=== PATIENT | male | born 1960 | race Caucasian/White ===

== ENCOUNTER → 2017-01-28 | Outpatient (REF) | payer OTHER ==
[2017-01-28 19:35] LABS: URIC ACID 5.1 MG/DL (3.5-7.2)
== END ==
LOC: M LAB REF 17:08
PROVIDERS: ATTEND Nurse Practitioner Family
DX: M79.672 Pain in left foot (principal)

== ENCOUNTER → 2017-07-31 | Outpatient (CLI) | payer OTHER ==
[2017-07-31 16:10] LABS: ALBUMIN 3.9 GM/DL (3.2-5.2); PERCENT SATURATION 27.1 % (19.7-50.0)
[2017-07-31 18:00] LABS: BASO % 0.3 % (0.0-1.0); EOS # 0.2 K/mm3 (0.0-0.50); EOS % 3.6 % (0.0-3.0); LARGE UNSTAINED CELL # 0.1 K/mm3 (0.0-0.4); LARGE UNSTAINED CELL % 1.9 % (0.0-4.0); LYMPH # 0.9 K/mm3 (1.5-4.5); LYMPH % 16.6 % (24.0-44.0); MEAN CORPUSCULAR HEMOGLOBIN 32.2 pg (27.0-33.0); MEAN CORPUSCULAR HGB CONC 34.5 g/dl (32.0-36.5); MEAN CORPUSCULAR VOLUME 93.1 fl (80.0-96.0); MONO # 0.3 K/mm3 (0.0-0.8); MONO % 6.7 % (0.0-5.0); NEUTROPHILS # 3.6 K/mm3 (1.8-7.7); NEUTROPHILS % 70.9 % (36.0-66.0); PLATELET COUNT, AUTOMATED 207 k/mm3 (150-450); RED CELL DISTRIBUTION WIDTH 12.5 % (11.5-14.5); WHITE BLOOD COUNT 5.1 K/mm3 (4.0-10.0)
== END ==
LOC: M LAB 13:40
PROVIDERS: ATTEND Orthopaedic Surgery
DX: M16.12 Unilateral primary osteoarthritis, left hip (principal); M25.552 Pain in left hip; Z01.818 Encounter for other preprocedural examination; D63.8 Anemia in other chronic diseases classified elsewhere

== ENCOUNTER 2017-12-17 05:24 | Emergency (ER) | payer OTHER ==
[2017-12-17 07:35] LABS: BASO % 0.2 % (0.0-1.0); EOS % 0.1 % (0.0-3.0); HEMATOCRIT 48.6 % (42.0-52.0); HEMOGLOBIN 16.6 g/dl (14.0-18.0); IMMATURE GRANULOCYTE # 0.1 10^3/uL (0-0); IMMATURE GRANULOCYTE % 0.5 % (0-0); LYMPH % 1.5 % (24.0-44.0); MEAN CORPUSCULAR HEMOGLOBIN 30.2 pg (27.0-33.0); MEAN CORPUSCULAR HGB CONC 34.2 g/dl (32.0-36.5); MEAN CORPUSCULAR VOLUME 88.5 fl (80.0-96.0); MONO # 0.4 10^3/uL (0.0-0.8); MONO % 4.4 % (0.0-5.0); NEUTROPHILS % 93.3 % (36.0-66.0); PLATELET COUNT, AUTOMATED 174 10^3/uL (150-450); RED BLOOD COUNT 5.49 10^6/uL (4.30-6.10); RED CELL DISTRIBUTION WIDTH 12.9 % (11.5-14.5); WHITE BLOOD COUNT 9.7 10^3/uL (4.0-10.0)
[2017-12-17] MEDS: NS 1,000 ML IV ×2 (07:36→08:53)
[2017-12-17] MEDS: ONDANSETRON 4MG/2ML VIAL (J2405) IV (07:36)
[2017-12-17 07:54] LABS: ALBUMIN 4.3 GM/DL (3.2-5.2); ALBUMIN/GLOBULIN RATIO 1.05 (1.00-1.93); ALKALINE PHOSPHATASE 76 U/L (45-117); ALT/SGPT 39 U/L (12-78); ANION GAP 8 MEQ/L (8-16); AST/SGOT 38 U/L (7-37); BILIRUBIN,DIRECT 0.2 MG/DL (0.0-0.2); BILIRUBIN,TOTAL 0.9 MG/DL (0.2-1.0); BLOOD UREA NITROGEN 30 MG/DL (7-18); CALCIUM LEVEL 9.3 MG/DL (8.5-10.1); CARBON DIOXIDE LEVEL 25 MEQ/L (21-32); CHLORIDE LEVEL 106 MEQ/L (98-107); CREATININE FOR GFR 1.54 MG/DL (0.70-1.30); GLOMERULAR FILTRATION RATE 49.5 (>56); GLUCOSE, FASTING 137 MG/DL (70-100); POTASSIUM SERUM 4.6 MEQ/L (3.5-5.1); SODIUM LEVEL 139 MEQ/L (136-145); TOTAL PROTEIN 8.4 GM/DL (6.4-8.2)
[2017-12-17 08:08] LABS: ADD MANUAL DIFFER NO; DIFF SLIDE NUMBER 122; LYMPH # 0.2 10^3/uL (1.5-4.5); POSITIVE DIFF POS FLAG
== END 2017-12-17 10:08 | disposition home or self-care (01) ==
LOC: M ED 05:24
DX: A08.4 Viral intestinal infection, unspecified (principal); I10 Essential (primary) hypertension; Z79.899 Other long term (current) drug therapy
CPT/HCPCS: J2405

== ENCOUNTER 2017-12-25 00:32 | Observation (INO) | payer OTHER ==
[2017-12-25] MEDS: CEFTRIAXONE SOD 1 GM in APPROPRIATE DILUENT 1 EA IV (02:39)
[2017-12-25] MEDS: KETOROLAC 30 MG/ML VIAL (J1885) IV ×2 (02:40)
[2017-12-25] MEDS: NS 1,000 ML IV ×2 (02:45)
[2017-12-25 02:52] LABS: ANION GAP 9 MEQ/L (8-16); BLOOD UREA NITROGEN 23 MG/DL (7-18); CALCIUM LEVEL 8.7 MG/DL (8.5-10.1); CARBON DIOXIDE LEVEL 27 MEQ/L (21-32); CHLORIDE LEVEL 99 MEQ/L (98-107); CREATININE FOR GFR 1.18 MG/DL (0.70-1.30); GLOMERULAR FILTRATION RATE > 60.0 (>56); GLUCOSE, FASTING 130 MG/DL (70-100); POTASSIUM SERUM 4.2 MEQ/L (3.5-5.1); SODIUM LEVEL 135 MEQ/L (136-145)
[2017-12-25 02:55] LABS: LACTIC ACID SEPSIS PROTOCOL 1.6 MMOL/L (0.4-2.0)
[2017-12-25 03:04] LABS: INFLUENZA A AMPLIFICATION NEGATIVE (NEGATIVE); INFLUENZA B AMPLIFICATION NEGATIVE (NEGATIVE)
[2017-12-25] MEDS ORDERED: ISOVUE-370 76% 100ML VIAL (Q9967) As Ordered ×2 (03:14)
[2017-12-25 03:15] LABS: BASO % 0.3 % (0.0-1.0); EOS # 0.1 10^3/uL (0.0-0.50); HEMATOCRIT 43.6 % (42.0-52.0); HEMOGLOBIN 14.8 g/dl (14.0-18.0); IMMATURE GRANULOCYTE % 1.3 % (0-3.0); LYMPH # 0.8 10^3/uL (1.5-4.5); LYMPH % 8.1 % (24.0-44.0); MEAN CORPUSCULAR HEMOGLOBIN 30.3 pg (27.0-33.0); MEAN CORPUSCULAR HGB CONC 33.9 g/dl (32.0-36.5); MEAN CORPUSCULAR VOLUME 89.3 fl (80.0-96.0); MONO # 0.9 10^3/uL (0.0-0.8); MONO % 9.1 % (0.0-5.0); NEUTROPHILS # 7.7 10^3/uL (1.8-7.7); NEUTROPHILS % 80.2 % (36.0-66.0); PLATELET COUNT, AUTOMATED 232 10^3/uL (150-450); RED BLOOD COUNT 4.88 10^6/uL (4.30-6.10); RED CELL DISTRIBUTION WIDTH 12.8 % (11.5-14.5); WHITE BLOOD COUNT 9.6 10^3/uL (4.0-10.0)
[2017-12-25] MEDS: AZITHROMYCIN INJ 500 MG, VIAL MATE ADAPTER 1 EACH in D5W 250 ML IV ×2 (03:25)
[2017-12-25] MEDS: APIXABAN 5 MG TAB (ELIQUIS) PO ×4 (04:18→20:20)
[2017-12-25 05:11] LABS: CPK CREATINE PHOSPHOKINASE 465 U/L (39-308); TROPONIN I < 0.02 NG/ML (< 0.10)
[2017-12-25 08:11] LABS: INR 1.26
[2017-12-25 08:12] LABS: PARTIAL THROMBOPLASTIN TIME 34.6 SECONDS (26.8-37.9)
[2017-12-25 08:16] LABS: C REACTIVE PROTEIN QUANTITATIV 4.43 MG/DL (0.00-0.30)
[2017-12-25 08:25] LABS: ERYTHROCYTE SEDIMENTATION RATE 26 mm/hr (0-20)
[2017-12-25] MEDS: LOSARTAN 50 MG TAB PO ×2 (09:54)
[2017-12-25] MEDS: ESCITALOPRAM OXALATE 10 MG TAB (LEXAPRO) PO ×2 (09:54)
[2017-12-25 11:07] LABS: CPK CREATINE PHOSPHOKINASE 341 U/L (39-308); TROPONIN I < 0.02 NG/ML (< 0.10)
[2017-12-25 11:08] LABS: CK-MB VALUE MASS 5.3 NG/ML (0.0-3.6); MB/CK RELATIVE INDEX 1.55 (< OR =4)
[2017-12-25 17:21] LABS: CK-MB VALUE MASS 5.2 NG/ML (0.0-3.6); CPK CREATINE PHOSPHOKINASE 346 U/L (39-308); TROPONIN I < 0.02 NG/ML (< 0.10)
[2017-12-25] MEDS: NORCO, ANEXSIA 5/325MG TABLET (HYDROcodone/ACETAMINOPHEN) PO ×2 (17:28)
[2017-12-26] MEDS: ACETAMINOPHEN TAB 650MG DOSE (2X325MG) PO ×2 (03:48)
[2017-12-26 05:39] LABS: BASO % 0.4 % (0.0-1.0); EOS # 0.2 10^3/uL (0.0-0.50); EOS % 2.3 % (0.0-3.0); HEMATOCRIT 37.6 % (42.0-52.0); IMMATURE GRANULOCYTE % 0.8 % (0-3.0); LYMPH % 12.1 % (24.0-44.0); MEAN CORPUSCULAR HEMOGLOBIN 30.4 pg (27.0-33.0); MEAN CORPUSCULAR HGB CONC 34.6 g/dl (32.0-36.5); MEAN CORPUSCULAR VOLUME 88.1 fl (80.0-96.0); MONO % 12.9 % (0.0-5.0); NEUTROPHILS # 5.7 10^3/uL (1.8-7.7); NEUTROPHILS % 71.5 % (36.0-66.0); PLATELET COUNT, AUTOMATED 197 10^3/uL (150-450); RED BLOOD COUNT 4.27 10^6/uL (4.30-6.10); RED CELL DISTRIBUTION WIDTH 12.8 % (11.5-14.5)
[2017-12-26 05:57] LABS: ALBUMIN 2.8 GM/DL (3.2-5.2); ALBUMIN/GLOBULIN RATIO 0.76 (1.00-1.93); ALKALINE PHOSPHATASE 55 U/L (45-117); ALT/SGPT 28 U/L (12-78); ANION GAP 6 MEQ/L (8-16); AST/SGOT 21 U/L (7-37); BILIRUBIN,TOTAL 0.6 MG/DL (0.2-1.0); BLOOD UREA NITROGEN 15 MG/DL (7-18); CALCIUM LEVEL 8.4 MG/DL (8.5-10.1); CARBON DIOXIDE LEVEL 26 MEQ/L (21-32); CHLORIDE LEVEL 103 MEQ/L (98-107); CREATININE FOR GFR 0.91 MG/DL (0.70-1.30); GLOMERULAR FILTRATION RATE > 60.0 (>56); GLUCOSE, FASTING 107 MG/DL (70-100); MAGNESIUM LEVEL 2.1 MG/DL (1.8-2.4); SODIUM LEVEL 135 MEQ/L (136-145); TOTAL PROTEIN 6.5 GM/DL (6.4-8.2)
[2017-12-26] MEDS: ESCITALOPRAM OXALATE 10 MG TAB (LEXAPRO) PO ×2 (09:00)
[2017-12-26] MEDS: LOSARTAN 50 MG TAB PO ×2 (09:00)
[2017-12-26] MEDS: APIXABAN 5 MG TAB (ELIQUIS) PO ×2 (09:01)
[2017-12-26] MEDS: NORCO, ANEXSIA 5/325MG TABLET (HYDROcodone/ACETAMINOPHEN) PO ×2 (12:35)
[2017-12-31 14:11] LABS: ANCA-ATYPICAL <1:20 titer (Neg:<1:20); ANTI THROMBIN 3 ANTIGEN IMMUNO 80 % (72-124); ANTI THROMBIN 3 FUNCT ACTIVITY 124 % (75-135); ANTINUCLEAR ANTIBODIES DIRECT Negative (Negative); CARDIOLIPIN IGA ANTIBODY <9 APL U/mL (0-11); CARDIOLIPIN IGG ANTIBODY <9 GPL U/mL (0-14); CARDIOLIPIN IGM ANTIBODY <9 MPL U/mL (0-12); CYTOPLASMIC NEUTROP AB ANCA-C <1:20 titer (Neg:<1:20); HOMOCYST(E)INE SERUM 14.6 umol/L (0.0-15.0); PERINUCLEAR AB ANCA-P <1:20 titer (Neg:<1:20); PROTEIN C ANTIGEN 58 % (60-150); PROTEIN S ANTIGEN FREE 168 % (57-157); PROTEIN S ANTIGEN TOTAL 56 % (60-150); SJOGREN'S ANTI SS-A <0.2 AI (0.0-0.9); SJOGREN'S ANTI SS-B <0.2 AI (0.0-0.9)
[2018-01-02 10:20] LABS: DRVV SCREEN 85.2 SEC
[2018-01-02 10:32] LABS: DRVV CONFIRM 67.5 SEC; LUPUS CONFIRM RATIO 1.8
[2018-01-02 10:34] LABS: NORMALIZED RATIO 1.11 (0.00-1.20)
== END 2017-12-26 15:16 | disposition home or self-care (01) ==
LOC: M ED 00:32 → M ED INP 04:32 → M PCU 17:05
DX: I26.99 Other pulmonary embolism without acute cor pulmonale (principal); I10 Essential (primary) hypertension; F32.9 Major depressive disorder, single episode, unspecified; Z87.19 Personal history of other diseases of the digestive system; Z79.899 Other long term (current) drug therapy; Z79.01 Long term (current) use of anticoagulants; Z98.84 Bariatric surgery status
CPT/HCPCS: J0456

== ENCOUNTER → 2018-01-31 | Outpatient (CLI) | payer OTHER | LOC: M RAD 14:54 | DX: R22.41 Localized swelling, mass and lump, right lower limb (principal); Z86.711 Personal history of pulmonary embolism | CPT/HCPCS: 93971 ==

== ENCOUNTER → 2018-02-06 | Outpatient (REF) | payer OTHER ==
[2018-02-06 14:06] LABS: C REACTIVE PROTEIN QUANTITATIV < 0.30 MG/DL (0.00-0.30)
== END ==
LOC: M LAB REF 13:36
DX: R79.82 Elevated C-reactive protein (CRP) (principal)

== ENCOUNTER → 2018-03-13 | Outpatient (REF) | payer OTHER ==
[2018-03-13 18:35] LABS: TESTOSTERONE 222 NG/DL (241-827)
== END ==
LOC: M LAB REF 16:45
DX: R68.82 Decreased libido (principal); R53.83 Other fatigue

== ENCOUNTER 2018-06-10 08:01 | Day surgery (SDC) | payer OTHER ==
[2018-06-10] MEDS ORDERED: NS 1,000 ML IV (08:15)
[2018-06-10] MEDS ORDERED: LIDOCAINE 2% INJ 100 MG/5 ML SDV (FOR ANES.) As Ordered (09:21)
[2018-06-10] MEDS ORDERED: PROPOFOL 200 MG/20 ML VIAL As Ordered ×2 (09:22)
== END 2018-06-10 10:28 | disposition home or self-care (01) ==
LOC: M OPP 08:01
DX: Z12.11 Encounter for screening for malignant neoplasm of colon (principal); D12.0 Benign neoplasm of cecum; D12.3 Benign neoplasm of transverse colon; D12.5 Benign neoplasm of sigmoid colon; K62.1 Rectal polyp; K57.30 Diverticulosis of large intestine without perforation or abscess without bleeding; K64.8 Other hemorrhoids; I10 Essential (primary) hypertension; K21.9 Gastro-esophageal reflux disease without esophagitis; R12 Heartburn; Z86.711 Personal history of pulmonary embolism; R06.83 Snoring; Z96.643 Presence of artificial hip joint, bilateral; Z79.01 Long term (current) use of anticoagulants; Z79.899 Other long term (current) drug therapy; Z80.0 Family history of malignant neoplasm of digestive organs
CPT/HCPCS: 45380

== ENCOUNTER → 2018-08-08 | Outpatient (REF) | payer OTHER ==
[2018-08-08 14:03] LABS: TESTOSTERONE 321 NG/DL (241-827)
== END ==
LOC: M LAB REF 13:10
DX: E29.1 Testicular hypofunction (principal); R68.82 Decreased libido; Z79.899 Other long term (current) drug therapy

== ENCOUNTER → 2018-08-15 | Outpatient (REF) | payer OTHER ==
[2018-08-15 14:54] LABS: TESTOSTERONE 212 NG/DL (241-827)
== END ==
LOC: M LAB REF 13:15
DX: E29.1 Testicular hypofunction (principal)

== ENCOUNTER → 2018-09-19 | Outpatient (REF) | payer OTHER ==
[2018-09-19 14:11] LABS: TESTOSTERONE 584 NG/DL (241-827)
== END ==
LOC: M LAB REF 12:08
DX: E29.1 Testicular hypofunction (principal)

== ENCOUNTER → 2019-01-26 | Outpatient (REF) | payer OTHER ==
[~2019-01-26] MED LIST: ELIQ5TAB PO; ESCI10TA2 PO; ESCI20TA PO; LOSA50TA88 PO; OXYC-517 PO; TEST200I14 IM; ZOFR4TAB14 PO
[2019-01-26 17:19] LABS: C REACTIVE PROTEIN QUANTITATIV 0.7 MG/DL (0.00-0.30); URIC ACID 6.2 MG/DL (3.5-7.2)
== END ==
LOC: M LAB REF 16:28
PROVIDERS: ATTEND Nurse Practitioner Family
DX: M79.674 Pain in right toe(s) (principal)

== ENCOUNTER → 2019-02-17 | Outpatient (CLI) | payer OTHER ==
--- NOTE | 2019-02-17 09:22 | REP ---
Right lower extremity arterial Doppler ultrasound: Brachial artery flow velocity 150 cm/sec. Dorsalis pedis flow velocity 148 cm/sec. Posterior tibialis artery flow velocity 120 cm/sec. SHAY: 1.1 Peak Systolic Phasicity Velocity GOLF TEACHER 44.6 triphasic Profunda 108.2 triphasic SFA prox 91.7 triphasic SFA mid 112 triphasic SFA dist 109.1 triphasic Pop 67.9 triphasic GASPER prox 65.4 triphasic Tib/P tr 55 triphasic INTERNATIONAL ORGANIZER pr 67.1 triphasic INTERNATIONAL ORGANIZER dst 70.4 triphasic GASPER dst 46.4 triphasic Left lower extremity arterial Doppler ultrasound: Brachial artery flow velocity 150 cm/sec. Dorsalis penis flow velocity 100 cm/sec. Posterior tibialis artery flow velocity 155 cm/sec. SHAY: 1.0 Peak Systolic Phasicity Velocity GOLF TEACHER 88.8 triphasic Profunda 68.0 triphasic SFA prox 88.7 triphasic SFA mid 105.7 triphasic SFA dist 103.4 triphasic Pop 74.0 triphasic GASPER prox 55.5 triphasic Tib/P tr 64.9 triphasic INTERNATIONAL ORGANIZER pr 54 points triphasic INTERNATIONAL ORGANIZER dst 44.4 upper triphasic GASPER dst 70.1 triphasic Impression: The peak flow velocities are normal bilaterally. There is no identifiable atheromatous plaque. There is no evidence of stenosis by Doppler ultrasound on the right or the left. Electronically Signed by Onesimo Sanchez MD 02/17/2019 09:14 A
== END ==
LOC: M RAD 07:05
PROVIDERS: ATTEND Podiatrist Foot & Ankle Surgery
DX: I73.9 Peripheral vascular disease, unspecified (principal); R22.43 Localized swelling, mass and lump, lower limb, bilateral

== ENCOUNTER → 2019-06-25 | Outpatient (REF) | payer OTHER ==
[2019-06-25 20:20] LABS: CHLAMYDIA DNA AMPLIFICATION NEGATIVE (NEGATIVE); GC DNA AMPLIFICATION NEGATIVE (NEGATIVE)
[2019-06-26 11:42] LABS: HEPATITIS A ANTIBODY IGM NEGATIVE (NEGATIVE); HEPATITIS B CORE ANTIBODY IGM NEGATIVE (NEGATIVE); HEPATITIS B SURFACE ANTIGEN NEGATIVE (NEGATIVE); HEPATITIS C VIRUS ABY INDEX 0.2 INDEX (<0.8); HIV 1&2 SCREEN CENTAUR NEGATIVE (NEGATIVE)
== END ==
LOC: M LAB REF 16:18
PROVIDERS: ATTEND Nurse Practitioner Family
DX: Z20.2 Contact with and (suspected) exposure to infections with a predominantly sexual mode of transmission (principal)

== ENCOUNTER → 2019-07-14 | Outpatient (REF) | payer OTHER | LOC: M LAB REF 13:59 | PROVIDERS: ATTEND Nurse Practitioner Family | DX: R30.0 Dysuria (principal) ==

== ENCOUNTER → 2019-07-17 | Outpatient (REF) | payer OTHER | LOC: M LAB REF 14:51 | PROVIDERS: ATTEND Nurse Practitioner Family | DX: R19.7 Diarrhea, unspecified (principal) ==

== ENCOUNTER → 2019-08-31 | Outpatient (REF) | payer OTHER ==
[2019-09-02 00:06] LABS: TESTOSTERONE FREE (DIRECT) 7.6 pg/mL (6.6-18.1)
== END ==
LOC: M LAB REF 12:13
PROVIDERS: ATTEND Internal Medicine
DX: E29.1 Testicular hypofunction (principal); R53.83 Other fatigue; M54.5 Low back pain

== ENCOUNTER → 2019-12-25 | Outpatient (REF) | payer OTHER ==
[2019-12-25 13:39] LABS: HIV 1&2 SCREEN CENTAUR NEGATIVE (NEGATIVE); TESTOSTERONE 240 NG/DL (241-827)
== END ==
LOC: M LAB REF 12:26
PROVIDERS: ATTEND Internal Medicine
DX: Z11.4 Encounter for screening for human immunodeficiency virus [HIV] (principal); E29.1 Testicular hypofunction

== ENCOUNTER 2020-01-18 17:53 | Emergency (ER) | payer OTHER ==
[~2020-01-18] VITALS: Ht 185.4 cm; Wt 120.2 kg
[2020-01-18 17:53] VITALS: BP 137/79
[2020-01-18 19:58] LABS: BASO % 0.4 % (0.0-1.0); EOS # 0.2 10^3/uL (0.0-0.5); EOS % 3.1 % (0.0-3.0); HEMATOCRIT 49.1 % (42.0-52.0); HEMOGLOBIN 16.6 g/dl (13.5-17.5); LYMPH # 1.5 10^3/uL (1.5-5.0); LYMPH % 22.2 % (24.0-44.0); MEAN CORPUSCULAR HEMOGLOBIN 31.3 pg (27.0-33.0); MEAN CORPUSCULAR HGB CONC 33.8 g/dl (32.0-36.5); MEAN CORPUSCULAR VOLUME 92.6 fl (80.0-96.0); MONO # 0.6 10^3/uL (0.0-0.8); NEUTROPHILS # 4.4 10^3/uL (1.5-8.5); NEUTROPHILS % 64.9 % (36.0-66.0); PLATELET COUNT, AUTOMATED 198 10^3/uL (150-450); WHITE BLOOD COUNT 6.8 10^3/uL (4.0-10.0)
[2020-01-18] MEDS ORDERED: ISOVUE-370 76% 100ML VIAL (Q9967) As Ordered ONE (20:07)
[2020-01-18 20:10] LABS: INR 1.15; PARTIAL THROMBOPLASTIN TIME 26.7 SECONDS (25.0-38.4); PROTHROMBIN TIME 14.4 SECONDS (11.8-14.0)
--- NOTE | 2020-01-18 21:16 | REPVR ---
PROCEDURE INFORMATION: Exam: CTA Right Lower Extremity With Contrast Exam date and time: 01/18/2020 8:14 PM Age: 59 years old Clinical indication: Other: Black toes; Additional info: Black toes, poor capillary refill bilateral, wound R 3rd toe TECHNIQUE: Imaging protocol: CTA images of the Right lower extremity with intravenous contrast using CT angiography protocol. 3D rendering: MIP and/or 3D reconstructed images were created by the technologist. Radiation optimization: All CT scans at this facility use at least one of these dose optimization techniques: automated exposure control; mA and/or kV adjustment per patient size (includes targeted exams where dose is matched to clinical indication); or iterative reconstruction. Contrast material: ISOVUE 370; Contrast volume: 100 ml; Contrast route: IV; COMPARISON: No relevant prior studies available. FINDINGS: Right femoral/popliteal arteries: No occlusion or significant stenosis. No aneurysm or dissection Right infrapopliteal arteries: The trifurcation is patent. There is flow in the proximal portions of the anterior and posterior tibial arteries and peroneal artery to the level of the mid calf. No contrast is seen below this level, though this appears to be an artifact related to suboptimal contrast bolus timing. Flow in the left foreleg is also not visualized below the mid calf. Other arteries: Common, internal, and external iliac arteries are patent without significant stenosis. Bones/joints: No acute fracture. No dislocation. Bilateral hip arthroplasties. Soft tissues: Unremarkable. IMPRESSION: 1. No large vessel occlusion or flow-limiting stenosis. 2. No significant arterial contrast opacification below the mid foreleg which is likely an artifact related to suboptimal contrast bolus timing. Vasculature below the mid foreleg cannot be evaluated. Electronically signed by: Manuel Pearson On 01/18/2020 21:16:23 PM
== END 2020-01-18 21:54 | disposition home or self-care (01) ==
LOC: M ED 17:53
DX: S91.109A Unspecified open wound of unspecified toe(s) without damage to nail, initial encounter (principal); X58.XXXA Exposure to other specified factors, initial encounter; Y92.89 Other specified places as the place of occurrence of the external cause; I73.9 Peripheral vascular disease, unspecified; I10 Essential (primary) hypertension; K21.9 Gastro-esophageal reflux disease without esophagitis; Z79.899 Other long term (current) drug therapy; Z79.01 Long term (current) use of anticoagulants
CPT/HCPCS: 36415; 73706; 80047; 85025; 85610; 85730; 99283; Q9967

== ENCOUNTER → 2020-03-18 | Outpatient (CLI) | payer OTHER ==
--- NOTE | 2020-03-18 12:50 | REP ---
Bilateral lower extremity arterial Doppler ultrasound: History: Pain in the leg. Symptoms and signs involving the circulatory system. Findings: Ankle brachial indices are normal measured at 1.0 on the right and 1.2 on the left. Normal triphasic waveforms are noted throughout the lower extremities bilaterally. Minimal plaquing is seen with calcification noted in the arteries about the ankles. No stenosis or occlusion is appreciated on either side. Right lower extremity arterial Doppler velocity chart: Right CF A PSV 111 cm/S Profunda 62 Proximal SFA 83 Mid SFA 89 Distal SFA 74 Popliteal 48 Proximal AT A 54 Tibioperoneal trunk 33 Proximal COMPLIANCE REVIEW OFFICER 56 Distal COMPLIANCE REVIEW OFFICER 42 Distal AT A 41 Left lower extremity arterial Doppler velocity chart: Left CF A PSV 108 cm/S Profunda 78 Proximal SFA 73 Mid SFA 97 Distal SFA 85 Popliteal 66 Proximal AT A 49 Tibioperoneal trunk 55 Proximal COMPLIANCE REVIEW OFFICER 43 Distal COMPLIANCE REVIEW OFFICER 48 Distal AT A 46 Electronically Signed by Nader Stout MD 03/18/2020 12:41 P
== END ==
LOC: M RAD 10:48
PROVIDERS: ATTEND Physician Assistant
DX: M79.606 Pain in leg, unspecified (principal); R09.89 Other specified symptoms and signs involving the circulatory and respiratory systems

== ENCOUNTER → 2020-06-21 | Outpatient (CLI) | payer OTHER ==
--- NOTE | 2020-08-05 10:50 | REP ---
BILATERAL LOWER EXTREMITY DUPLEX DOPPLER VENOUS ULTRASOUND WITH EVALUATION FOR VENOUS REFLUX: TECHNIQUE: Real time compression and duplex Doppler interrogation of bilateral lower extremity deep venous systems is performed bilaterally. FINDINGS: The common femoral, superficial femoral and popliteal veins are fully compressible with transducer pressure and demonstrate normal spontaneous and phasic flow without evidence of deep venous thrombosis. Evaluation for venous reflux on the right demonstrates no reflux in any portion of the deep vein system. There is no evidence of an anterior accessory greater saphenous vein. There is mild reflux in the mid-greater saphenous vein with a duration of 2.7 seconds, AP diameter of 3 mm with no other events of greater saphenous vein reflux. At the saphenofemoral junction, the vein measures 4 mm and at the knee, 3 mm. The lesser saphenous vein measures 5 mm without reflux. On the left, there is some mild reflux in the common femoral vein. There is no evidence of an anterior greater saphenous vein. There is minimal reflux in the greater saphenous vein at the saphenofemoral junction with duration of 0.7 seconds, AP diameter of 4 mm. No reflux is seen in the remaining greater saphenous vein which measures 4 mm at the mid-thigh and 3 mm at the knee. The is no reflux in the lesser saphenous vein which measures 5 mm. MTDD
== END ==
LOC: M RAD 12:00
PROVIDERS: ATTEND Physician Assistant
DX: I87.2 Venous insufficiency (chronic) (peripheral) (principal)

== ENCOUNTER → 2020-07-01 | Outpatient (REF) | payer OTHER ==
[2020-07-04 13:06] LABS: TESTOSTERONE FREE (DIRECT) 17.6 pg/mL (6.6-18.1)
== END ==
LOC: M LAB REF 17:13
PROVIDERS: ATTEND Internal Medicine
DX: E29.1 Testicular hypofunction (principal)

== ENCOUNTER → 2020-09-01 | Outpatient (REF) | payer OTHER | LOC: M LAB REF 11:31 | PROVIDERS: ATTEND Nurse Practitioner Adult Health | DX: R30.0 Dysuria (principal); R31.29 Other microscopic hematuria ==

== ENCOUNTER → 2020-09-15 | Outpatient (REF) | payer OTHER ==
[2020-09-15 14:10] LABS: APPEARANCE, URINE CLEAR (CLEAR); BACTERIA, URINE AUTO NEGATIVE (NEGATIVE); BILIRUBIN, URINE AUTO NEGATIVE (NEGATIVE); BLOOD, URINE BLOOD NEGATIVE (NEGATIVE); COLOR, URINE YELLOW (YELLOW); GLUCOSE, URINE (UA) AUTO NEGATIVE (NEGATIVE); KETONE, URINE AUTO NEGATIVE (NEGATIVE); LEUKOCYTE ESTERASE, URINE AUTO NEGATIVE (NEGATIVE); MUCUS, URINE SMALL (NEGATIVE); NITRITE, URINE AUTO NEGATIVE (NEGATIVE); PROTEIN, URINE AUTO NEGATIVE (NEGATIVE); RBC, URINE AUTO 1 /HPF (0-3); SPECIFIC GRAVITY URINE AUTO 1.018 (1.002-1.035); SQUAMOUS EPITHELIAL CELL UR AU 0 /HPF (0-6); UROBILINOGEN, URINE AUTO 0.2 mg/dL (0.0-2.0); WBC, URINE AUTO 1 /HPF (0-3)
== END ==
LOC: M SMT 13:05
PROVIDERS: ATTEND Nurse Practitioner Women's Health
DX: R31.29 Other microscopic hematuria (principal)

== ENCOUNTER → 2020-09-23 | Outpatient (CLI) | payer OTHER ==
[~2020-09-23] MED LIST changes: +ISOVUE-370 76% 100ML VIAL As Ordered ONE
--- NOTE | 2020-09-23 10:00 | REP ---
INDICATION: GROIN PAIN, MICROSCOPIC HEMATURIA. CT urography. COMPARISON: None. TECHNIQUE: Contrast dose: 100 ML of Isovue [address] technique: Helical scanning is acquired and overlapping 1.5 mm and contiguous 3 mm axial images are reformatted. In addition, maximum intensity projection and multiplanar re-formation images are generated in sagittal and coronal imaging projections. 3D surface rendered imaging is acquired on delayed acquisition. FINDINGS: Preliminary digital marine painter radiograph demonstrates bilateral hip arthroplasties and a normal bowel gas pattern. The lung bases are clear. Axial images demonstrate surgical clips and sutures at the gastroesophageal junction. There is minimal diffuse fatty infiltration of the liver. No focal liver lesion is seen. The spleen is normal in size homogeneous in texture. No abnormality is noted in the gallbladder or the pancreas. Normal adrenal glands are observed bilaterally. There is no evidence of hydronephrosis on either side. Noncontrast study shows no evidence of intrarenal calculus. The kidneys enhance symmetrically post-contrast. No renal mass lesion is observed. Delayed scan images show no filling defect in the collecting system on either side. The ureters describe a normal course to the urinary bladder. Lyman artifact it interferes with pelvis images somewhat. There are few calcifications in the prostate gland. No filling defect is apparent in the urinary bladder. There is left colonic diverticulosis without CT evidence of diverticulitis. No abdominal wall defect is seen. No bony destructive lesion is appreciated. Surface rendered 3D images show no additional abnormality. IMPRESSION: No evidence urinary tract calculus or mass lesion. Left colonic diverticulosis without CT evidence of diverticulitis. Some dystrophic calcifications in the prostate. <Electronically signed by Fred Stout > 09/23/20 [id number]
== END ==
LOC: M RAD 08:12
PROVIDERS: ATTEND Nurse Practitioner Women's Health
DX: R10.30 Lower abdominal pain, unspecified (principal); R31.29 Other microscopic hematuria; K57.30 Diverticulosis of large intestine without perforation or abscess without bleeding
CPT/HCPCS: 74178; Q9967

== ENCOUNTER → 2021-01-06 | Outpatient (REF) | payer OTHER ==
[~2021-01-06] MED LIST changes: +ESCI10TA16 PO; -ESCI10TA2 PO; -ESCI20TA PO; +ESCI20TA16 PO; -ISOVUE-370 76% 100ML VIAL As Ordered ONE
[2021-01-09 19:06] LABS: TESTOSTERONE FREE (DIRECT) 4.2 pg/mL (6.6-18.1)
== END ==
LOC: M LAB REF 16:33
PROVIDERS: ATTEND Internal Medicine
DX: E29.1 Testicular hypofunction (principal)

== ENCOUNTER → 2021-07-10 | Outpatient (REF) | payer OTHER ==
[2021-07-13 20:07] LABS: TESTOSTERONE FREE (DIRECT) 7.6 pg/mL (6.6-18.1)
== END ==
LOC: M LAB REF 10:10
PROVIDERS: ATTEND Internal Medicine
DX: E29.1 Testicular hypofunction (principal)

== ENCOUNTER → 2022-02-08 | Outpatient (REF) | payer OTHER ==
[~2022-02-08] MED LIST changes: +LOSA50TA28 PO; -LOSA50TA88 PO
[2022-02-09 21:07] LABS: TESTOSTERONE FREE (DIRECT) 19.9 pg/mL (6.6-18.1)
== END ==
LOC: M LAB REF 12:21
PROVIDERS: ATTEND Internal Medicine
DX: E29.1 Testicular hypofunction (principal)

== ENCOUNTER → 2022-03-12 | Outpatient (REF) | payer OTHER | LOC: M LAB REF 16:19 | PROVIDERS: ATTEND Internal Medicine | DX: E29.1 Testicular hypofunction (principal) ==

== ENCOUNTER 2022-06-20 00:07 | Emergency (ER) | payer OTHER ==
[~2022-06-20] VITALS: Ht 188 cm; Wt 116.0 kg
[2022-06-20 01:10] LABS: BASO # 0.1 10^3/uL (0.0-0.2); BASO % 0.8 % (0.0-1.0); EOS # 0.2 10^3/uL (0.0-0.5); EOS % 3.7 % (0.0-3.0); HEMATOCRIT 50.3 % (42.0-52.0); HEMOGLOBIN 17.1 g/dl (13.5-17.5); LYMPH # 1.2 10^3/uL (1.5-5.0); LYMPH % 19.5 % (24.0-44.0); MEAN CORPUSCULAR HEMOGLOBIN 31.5 pg (27.0-33.0); MEAN CORPUSCULAR VOLUME 92.8 fl (80.0-96.0); MONO # 0.7 10^3/uL (0.0-0.8); MONO % 10.7 % (2.0-8.0); NEUTROPHILS % 64.6 % (36.0-66.0); PLATELET COUNT, AUTOMATED 172 10^3/uL (150-450); RED BLOOD COUNT 5.42 10^6/uL (4.30-6.10); WHITE BLOOD COUNT 6.2 10^3/uL (4.0-10.0)
[2022-06-20 02:42] LABS: CK-MB VALUE MASS 15.8 NG/ML (<3.6); MB/CK RELATIVE INDEX 2.49 (< OR =4)
[2022-06-20 02:43] LABS: BLOOD UREA NITROGEN 15 MG/DL (7-18); CALCIUM LEVEL 8.6 MG/DL (8.8-10.2); CARBON DIOXIDE LEVEL 26 MEQ/L (21-32); CHLORIDE LEVEL 105 MEQ/L (98-107); CREATININE FOR GFR 1.01 MG/DL (0.70-1.30); GLOMERULAR FILTRATION RATE > 60.0 (>49); GLUCOSE, FASTING 96 MG/DL (70-100); NT-PRO BNP 54 PG/ML (<125); POTASSIUM SERUM 4.3 MEQ/L (3.5-5.1); SODIUM LEVEL 137 MEQ/L (136-145)
[2022-06-20] MEDS ORDERED: ISOVUE-370 76% 100ML VIAL As Ordered ONE (02:55)
[2022-06-20] MEDS ORDERED: NS 1,000 ML IV ONE (03:40)
[2022-06-20 03:45] VITALS: BP 140/75
== END 2022-06-20 04:06 | disposition home or self-care (01) ==
LOC: M ED 00:07
DX: R07.89 Other chest pain (principal); E04.1 Nontoxic single thyroid nodule; I10 Essential (primary) hypertension; Z86.711 Personal history of pulmonary embolism; Z79.899 Other long term (current) drug therapy; Z79.890 Hormone replacement therapy; Z79.01 Long term (current) use of anticoagulants
CPT/HCPCS: 36415; 71045; 71275; 74177; 80048; 82550; 82553; 83735; 83880; 84484; 85025; 93005; 99284; Q9967

== ENCOUNTER → 2022-07-10 | Outpatient (CLI) | payer OTHER | LOC: M RAD 11:59 | PROVIDERS: ATTEND Internal Medicine | DX: E04.1 Nontoxic single thyroid nodule (principal) ==

== ENCOUNTER → 2022-07-13 | Outpatient (REF) | payer OTHER | LOC: M LAB REF 16:19 | PROVIDERS: ATTEND Internal Medicine | DX: E29.1 Testicular hypofunction (principal) ==

== ENCOUNTER → 2023-06-25 | Outpatient (REF) | payer OTHER | LOC: M LAB REF 11:44 | PROVIDERS: ATTEND Physician Assistant Medical | DX: R19.7 Diarrhea, unspecified (principal) ==

== ENCOUNTER → 2023-06-28 | Outpatient (REF) | payer OTHER | LOC: M LAB REF 16:00 | PROVIDERS: ATTEND Physician Assistant Medical | DX: R19.7 Diarrhea, unspecified (principal) ==

== ENCOUNTER → 2023-07-26 | Outpatient (REF) | payer OTHER ==
[2023-07-29 09:47] LABS: DRVV SCREEN 54.5 SECONDS
[2023-07-29 10:13] LABS: PTT LUPUS TYPE ANTICOAG SCREEN 1.36 (0-1.20)
[2023-07-29 10:21] LABS: DRVV CONFIRM 46.7 SECONDS; LUPUS CONFIRM RATIO 1.22
[2023-07-29 10:22] LABS: NORMALIZED RATIO 1.11 (0.00-1.20)
== END ==
LOC: M LAB REF 11:47
PROVIDERS: ATTEND Internal Medicine
DX: D68.69 Other thrombophilia (principal); Z86.718 Personal history of other venous thrombosis and embolism; E29.1 Testicular hypofunction

== ENCOUNTER 2023-09-10 06:52 | Day surgery (SDC) | payer OTHER ==
[~2023-09-10] VITALS: Ht 185.4 cm; Wt 113.9 kg
[~2023-09-10 06:52] MED LIST changes: +LEXA1TAB PO; +NS 1,000 ML IV ONE; +[UNRECOGNIZED DRUG - CODE] PO
[2023-09-10] MEDS ORDERED: propofoL 200 MG/20 ML VIAL As Ordered ONE ×2 (07:24→07:47)
[2023-09-10 08:07] VITALS: TEMP 96.1
[2023-09-10 08:23] VITALS: BP 133/72; O2SAT 98
== END 2023-09-10 09:24 | disposition home or self-care (01) ==
LOC: M OPP 06:52
PROVIDERS: ATTEND Internal Medicine Gastroenterology
DX: Z12.11 Encounter for screening for malignant neoplasm of colon (principal); K63.5 Polyp of colon; K57.30 Diverticulosis of large intestine without perforation or abscess without bleeding; K64.4 Residual hemorrhoidal skin tags; K64.8 Other hemorrhoids; Z79.01 Long term (current) use of anticoagulants; Z79.899 Other long term (current) drug therapy

== ENCOUNTER → 2023-10-15 | Outpatient (CLI) | payer OTHER ==
[~2023-10-15] MED LIST changes: -NS 1,000 ML IV ONE
[2023-10-15 17:12] LABS: HEMATOCRIT 47.6 % (42.0-52.0); HEMOGLOBIN 16.3 g/dl (13.5-17.5); MEAN CORPUSCULAR HEMOGLOBIN 31.9 pg (27.0-33.0); MEAN CORPUSCULAR HGB CONC 34.2 g/dl (32.0-36.5); MEAN CORPUSCULAR VOLUME 93.2 fl (80.0-96.0); PLATELET COUNT, AUTOMATED 201 10^3/uL (150-450); RED BLOOD COUNT 5.11 10^6/uL (4.30-6.10); WHITE BLOOD COUNT 6.4 10^3/uL (4.0-10.0)
[2023-10-15 22:34] LABS: ALBUMIN 3.9 G/DL (3.2-5.2); ALKALINE PHOSPHATASE 54 U/L (46-116); ALT/SGPT 44 U/L (7.0-40); AST/SGOT 39 U/L (<34); BILIRUBIN,TOTAL 0.7 MG/DL (0.3-1.2); BLOOD UREA NITROGEN 19 MG/DL (9-23); CALCIUM LEVEL 9.1 MG/DL (8.3-10.6); CARBON DIOXIDE LEVEL 29 MMOL/L (20-31); CHLORIDE LEVEL 104 MMOL/L (98-107); CREATININE FOR GFR 0.97 MG/DL (0.70-1.30); GLOMERULAR FILTRATION RATE > 60.0 (>49); GLUCOSE, FASTING 90 MG/DL (74-106); POTASSIUM SERUM 4.8 MMOL/L (3.5-5.1); SODIUM LEVEL 139 MMOL/L (136-145); TOTAL PROTEIN 7.4 G/DL (5.7-8.2)
[2023-10-17 14:10] LABS: TESTOSTERONE FREE (DIRECT) 4.8 pg/mL (6.6-18.1)
== END ==
LOC: M WUC 12:27
PROVIDERS: ATTEND Internal Medicine
DX: I10 Essential (primary) hypertension (principal); E29.1 Testicular hypofunction